=== PATIENT | male | born 1995 | race Caucasian/White ===

== ENCOUNTER 2023-09-27 16:44 | Emergency (ER) | payer MEDICARE ==
[~2023-09-27] VITALS: Ht 167.6 cm; Wt 55.0 kg
[2023-09-27 18:07] VITALS: TEMP 98.2
[2023-09-27 20:50] VITALS: BP 126/74; PULSE 72; RESP 20
== END 2023-09-27 21:00 | disposition home or self-care (01) ==
LOC: EMS 16:44
DX: T59.891A Toxic effect of other specified gases, fumes and vapors, accidental (unintentional), initial encounter (principal); F41.9 Anxiety disorder, unspecified; Y92.89 Other specified places as the place of occurrence of the external cause
CPT/HCPCS: 71045; 99283